=== PATIENT | female | born 1975 | race Caucasian/White ===

== ENCOUNTER 2020-04-09 02:57 | Outpatient (CLI) | payer OTHER, SELFPAY ==
[2020-04-09 19:47] LABS: SARS-CoV-2 RNA PCR Negative
== END 2020-04-09 02:58 | disposition home or self-care (01) ==
LOC: ANHCOVIDDT 02:57
PROVIDERS: PCP Family Medicine; Visit Provider Internal Medicine Gastroenterology
DX: Z01.812 Encounter for preprocedural laboratory examination (principal); Z20.828 Contact with and (suspected) exposure to other viral communicable diseases
CPT/HCPCS: 87635; C9803; U0003

== ENCOUNTER 2020-04-12 00:59 | Day surgery (SDC) | payer OTHER, SELFPAY ==
[2020-04-08 13:59] VITALS: BMI 36.3
[2020-04-12 12:50] VITALS: BP 131/83; PULSE 77; RESP 16; TEMP 36.3; O2SAT 99
[2020-04-12] MEDS: LACTATED RINGERS 1,000 ML 150 ML IV CONT (12:54)
--- NOTE | 2020-04-12 13:02 | WPDANESEPPF ---
Anes - Initial Pre Proc Eval Procedure: Operation Date: 04/12/20 14:30 Proposed Procedures p Esophagogastroduodenoscopy - Burt Mclean MD Date/Time: 04/12/20 13:02 Surgeon: Burt Mclean MD Pre Op Diagnosis: N & V/ Gastritis Patient Data Age: 44 Gender: F Height: 1.68 m Weight: 102.8 kg Last Vital Signs Temp 36.3 C L 04/12/20 12:50 Pulse 77 04/12/20 12:50 Resp 16 04/12/20 12:50 BP 131/83 04/12/20 12:50 Pulse Ox 99 04/12/20 12:50 Allergies Allergy/AdvReac Type Severity Reaction Status Date / Time Iodinated Contrast Media Allergy Severe hives Verified 04/12/20 12:50 iodine Allergy Severe Hives Verified 04/12/20 12:50 iodixanol Allergy Severe Hives Verified 04/12/20 12:50 Contrast Media Allergy Severe Hives Uncoded 04/08/20 13:57 Home Medications Medication Instructions Recorded Confirmed Type amitriptyline 25 mg tablet 25 mg PO HS 04/03/19 04/08/20 History topiramate 50 mg tablet 50 mg PO BID 04/03/19 04/08/20 History pantoprazole 40 mg tablet,delayed 40 mg PO QAM #30 tablet 02/08/20 04/08/20 Rx release Patient hx anesthesia problems: none Family hx anesthesia problems: none PMFSH Past Medical History Medical History (System 03/20/20 @ 08:38 by Namrata Olea) Adenomatous colon polyp Bloating Chronic left-sided low back pain without sciatica Depression with anxiety Diarrhea Erosive gastritis Family history of colon cancer LUQ pain Migraine Nausea Family History Family History (System 03/20/20 @ 08:38 by Namrata Olea) Father Cerebrovascular accident Hypertension Mother Diabetes mellitus Family history of osteoarthritis Carcinoma of colon Other Family history of arthritis Family history of malignant neoplasm Family history of malignant neoplasm of ovary Social History Social History (System 03/20/20 @ 08:38 by Namrata Olea) Smoking packs per day: 1 Smoking cigarettes per day: 20.0 Years smoked: 25 Smoking pack-years: 25.00 Smoking status: Former smoker Tobacco type: cigarettes Second hand tobacco smoke exposure: No Smoking end date: 12/20/18 Alcohol intake: never Substance use: never Substance use type: does not use Living arrangements: with family Spiritual care concerns: No Anes - Eval Final PreProcedure Day of Procedure 04/12/20 13:02 Patient weight: obese Heart: regular rate and rhythm Lungs: clear to auscultation and normal air movement Airway: Mallampati scale class II Neurological: alert and oriented Last oral intake: >/= 8 hours ASA classification: II Emergent: no Anesthetic plan: proceed Anesthesia type and monitoring: general GIVS Informed Consent: The patient's anesthetic plan and its attendant risks and benefits were discussed with the patient/family/POA. Questions were solicited and answers provided to the satisfaction of the patient/family/POA.
--- NOTE | 2020-04-12 13:55 | PM.HPGS ---
History of Present Illness History of Present Illness Consent: Risks, benefits, and alternatives have been discussed and questions answered. Patient agrees to proceed with procedure. Chief complaint: N & V/ Gastritis Narrative: Savanah Jordan is a 44 year old female here because 04/2019 egd showed moderate-severe erosive gastritis with ulcers, now on protonix better. Review of Systems Constitutional: Constitutional: Denies headache(s) and Denies weakness Eyes: Eyes: Denies blurry vision ENT: Reports Normal hearing present, Denies headache(s) and Denies neck pain Cardiovascular: Cardiovascular: Denies chest pain and Denies dyspnea Respiratory: Respiratory: Denies dyspnea Gastrointestinal: Gastrointestinal: Reports no additional gastrointestinal complaints Genitourinary: Genitourinary: Denies dysuria Musculoskeletal: Musculoskeletal: Denies neck pain Integumentary/Breasts: Skin/Breast: Denies dry skin Neurologic: Reports Normal hearing present, Denies headache(s) and Denies weakness Psychiatric: Psychiatric: Denies anxiety Endocrine: Endocrine: Denies change in body appearance Hematologic/Lymphatic: Hematologic/Lymphatic: Denies easy bleeding Allergic/Immunologic: Allergic/Immunologic: Denies urticaria PMFSH Past Medical History Medical History (System 03/20/20 @ 08:38 by Namrata Olea) Adenomatous colon polyp Bloating Chronic left-sided low back pain without sciatica Depression with anxiety Diarrhea Erosive gastritis Family history of colon cancer LUQ pain Migraine Nausea Family History Family History (System 03/20/20 @ 08:38 by Namrata Olea) Father Cerebrovascular accident Hypertension Mother Diabetes mellitus Family history of osteoarthritis Carcinoma of colon Other Family history of arthritis Family history of malignant neoplasm Family history of malignant neoplasm of ovary Social History Social History (System 03/20/20 @ 08:38 by Namrata Olea) Smoking packs per day: 1 Smoking cigarettes per day: 20.0 Years smoked: 25 Smoking pack-years: 25.00 Smoking status: Former smoker Tobacco type: cigarettes Second hand tobacco smoke exposure: No Smoking end date: 12/20/18 Alcohol intake: never Substance use: never Substance use type: does not use Living arrangements: with family Spiritual care concerns: No Meds Home Medications and Allergies Home Medications Medication Instructions Recorded Confirmed Type amitriptyline 25 mg tablet 25 mg PO HS 04/03/19 04/08/20 History topiramate 50 mg tablet 50 mg PO BID 04/03/19 04/08/20 History pantoprazole 40 mg tablet,delayed 40 mg PO QAM #30 tablet 02/08/20 04/08/20 Rx release Allergies Allergy/AdvReac Type Severity Reaction Status Date / Time Iodinated Contrast Media Allergy Severe hives Verified 04/12/20 12:50 iodine Allergy Severe Hives Verified 04/12/20 12:50 iodixanol Allergy Severe Hives Verified 04/12/20 12:50 Contrast Media Allergy Severe Hives Uncoded 04/08/20 13:57 Vital Signs Vital Signs - 24 hr 04/12/20 12:50 Temperature 97.4 F L Pulse Rate 77 Respiratory Rate 16 Blood Pressure 131/83 Pulse Oximetry 99 Exam Const: General: comfortable and no acute distress HENMT: General nose exam: Normal nares present Eyes: General: appearance normal, both eyes and all related structures Neck: Neck: no JVD Resp: Auscultation: clear to auscultation bilaterally Cardio: Rate: regular rate Rhythm: regular rhythm GI: Inspection: non-distended GI Palp: Yes Soft to palpation Skin: General skin exam: normal color Neuro: General: gait normal Speech: normal speech Extrem: General: normal to inspection Psych: Mental Status: mental status grossly normal Assessment and Plan Assessment and plan (1) Erosive gastritis: Code(s): K29.60 - Other gastritis without bleeding Status: Acute Assessment and Plan: egd to reassess (2) Naus
[2020-04-12] MEDS: BENZOCAINE (*SP) 60 ML SPRAY CAN (HURRICAINE) 1 SPRAY MUCOUS MEM (14:02)
[2020-04-12 14:13] VITALS: BP 111/72; PULSE 74; RESP 19; O2SAT 100
[2020-04-12 14:23] VITALS: BP 112/76; PULSE 68; RESP 15; O2SAT 100
[2020-04-12 14:33] VITALS: BP 112/69; PULSE 68; RESP 21; O2SAT 100
== END 2020-04-12 14:39 | disposition home or self-care (01) ==
PROVIDERS: PCP Family Medicine; Visit Provider Internal Medicine Gastroenterology
PROC: 0DJ08ZZ Inspection of Upper Intestinal Tract, Via Natural or Artificial Opening Endoscopic (ICD-10-PCS; CPT 43235; principal; 2020-04-12 14:30)
DX: K29.50 Unspecified chronic gastritis without bleeding (principal); K21.9 Gastro-esophageal reflux disease without esophagitis; Z87.11 Personal history of peptic ulcer disease; F41.8 Other specified anxiety disorders; Z80.0 Family history of malignant neoplasm of digestive organs; Z87.891 Personal history of nicotine dependence; E66.9 Obesity, unspecified; Z68.36 Body mass index [BMI] 36.0-36.9, adult
CPT/HCPCS: 43239; 88305; J2704; J7120

== ENCOUNTER 2020-05-05 10:27 | Emergency (ER) | payer OTHER, SELFPAY ==
[2020-05-05 10:35] VITALS: BP 124/80; PULSE 79; RESP 16; TEMP 36.8; O2SAT 100
[2020-05-05 10:49] VITALS: BP 124/80; PULSE 79; RESP 16; TEMP 36.8; O2SAT 100
--- NOTE | 2020-05-05 10:52 | ED.FEMALEGU ---
HPI - Female Genitourinary General Chief complaint: Urogenital-Female Stated complaint: UTI Time Seen by Provider: 05/05/20 10:43 Source: patient and RN notes reviewed Mode of arrival: ambulatory Limitations: no limitations History of Present Illness HPI Narrative: Patient presents today with a 4 to 5-day history of dysuria, urgency, low back pain. Symptoms have significantly worsened over the past 2 days. Denies abdominal pain, hematuria, fever, nausea, vomiting. She has tried no [id number] interventions prior to arrival. MD elicited complaint: UTI Related Data Home Medications Medication Instructions Recorded Confirmed amitriptyline 25 mg tablet 25 mg PO HS 04/03/19 05/05/20 topiramate 50 mg tablet 50 mg PO BID 04/03/19 05/05/20 Allergies Allergy/AdvReac Type Severity Reaction Status Date / Time Iodinated Contrast Media Allergy Severe hives Verified 05/05/20 10:33 iodine Allergy Severe Hives Verified 05/05/20 10:33 iodixanol Allergy Severe Hives Verified 05/05/20 10:33 Contrast Media Allergy Severe Hives Uncoded 05/05/20 10:33 Review of Systems Review of Systems: Narrative: CONSTITUTIONAL: Denies body aches, fever, chills, or sweats. EYES: Denies visual changes, redness, or discharge. ENT: Denies rhinorrhea, congestion, sore throat, or otalgia. CARDIOVASCULAR: Denies chest pain, palpitations, or edema. RESPIRATORY: Denies cough or dyspnea. GASTROINTESTINAL: Denies abdominal pain, nausea, vomiting, or diarrhea. GENITOURINARY: Denies hematuria. + Dysuria, urgency SKIN: Denies rash, itching, or wounds. MUSCULOSKELETAL: Denies joint pain, or myalgia. + Low back pain NEUROLOGIC: Denies headache, numbness, tingling, or weakness. PSYCH: Denies depression or anxiety. [facility] Past Medical History Medical History Adenomatous colon polyp Bloating Chronic left-sided low back pain without sciatica Depression with anxiety Diarrhea Erosive gastritis Family history of colon cancer LUQ pain Migraine Nausea Family History Family History Father Cerebrovascular accident Hypertension Mother Diabetes mellitus Family history of osteoarthritis Carcinoma of colon Other Family history of arthritis Family history of malignant neoplasm Family history of malignant neoplasm of ovary Social History Social History Smoking packs per day: 1 Smoking cigarettes per day: 20.0 Years smoked: 25 Smoking pack-years: 25.00 Smoking status: Former smoker Tobacco type: cigarettes Second hand tobacco smoke exposure: No Smoking end date: 12/20/18 Alcohol intake: never Substance use: never Substance use type: does not use Spiritual care concerns: No Comments At time of signature, I have reviewed and agree with nursing past medical, surgical, social and family history unless otherwise noted. Please see nursing chart for further information. There is no relevant family history pertinent to the presenting complaint Exam Narrative: Exam Narrative: GENERAL: Well-appearing, well-nourished, and in no acute distress. HEAD: Normocephalic, atraumatic. EYES: EOMI. No redness or drainage. Conjunctivae normal. ENT: Mucous membranes pink and moist. NECK: Normal AROM. CHEST: No respiratory distress. Clear to auscultation. HEART: Regular rate and rhythm. No murmur appreciated. Normal peripheral pulses. ABDOMEN: Soft, nontender, nondistended, normal active bowel sounds. -CVAT MUSCULOSKELETAL: No bony tenderness. EXTREMITIES: Normal range of motion. No edema. SKIN: Warm, dry, no rash. Capillary refill normal. Normal skin turgor. NEURO: No focal deficits. Alert and oriented x3. Gait steady. PSYCH: Normal affect. No signs of depression or anxiety. Course Vital Signs Vital signs: Vital Signs Temperature 98.2 F 05/05
== END 2020-05-05 11:00 | disposition home or self-care (01) ==
PROVIDERS: Emergency Provider Nurse Practitioner; PCP Family Medicine
DX: N30.01 Acute cystitis with hematuria (principal); Z87.891 Personal history of nicotine dependence; F32.9 Major depressive disorder, single episode, unspecified
CPT/HCPCS: 81003; 87077; 87086; 87088; 87186; 99213; G0463

== ENCOUNTER 2020-12-06 09:35 | Outpatient (CLI) | payer BC, MEDICAID, SELFPAY ==
--- NOTE | 2020-12-06 09:41 | EST_ITS ---
Patient Info Name: Savanah Jordan Age: 45 years : 1975 Gender: Female Ht: 66 in Wt: 225 lbs BSA: 2.22 m2 Exam Date: 12/06/2020 9:56 AM Exam Location: [facility] Stress Patient Status: Outpatient Admit Date: 12/06/2020 Staff Ordering Physician: Isatu Galindo NP Attending Provider: Isatu Galindo NP Exercise Technologist: Yolie Nichole RDCS Exercise Physician: Albert Baez DO Exam Type: CA stress test treadmill Study Info A treadmill exercise stress test was performed. Summary 1. 1. Negative Bright exercise stress test for ischemic ST changes by ECG criteria. 2. 2. Good functional capacity, achieving 10 METs of workload. 3. 3. Appropriate HR response to exercise. 4. 4. Appropriate HR recovery at 1 minute post exercise. 5. 5. No imaging with stress testing. 6. 6. Patient informed of the above results. Protocol: Bright Stress ECG Details Stage: REST Duration (min): 0 min : 49 sec Speed (mph): 0.0 Grade (%): 0 HR (bpm): 71 SBP (mmHg): 127 DBP (mmHg): 79 METS: --- Stage: REST Duration (min): 6 min : 35 sec Speed (mph): 0.0 Grade (%): 0 HR (bpm): 75 SBP (mmHg): 127 DBP (mmHg): 79 METS: --- Stage: STAGE 1 Duration (min): 1 min : 0 sec Speed (mph): 1.7 Grade (%): 10 HR (bpm): 108 SBP (mmHg): 127 DBP (mmHg): 79 METS: --- Stage: STAGE 1 Duration (min): 2 min : 0 sec Speed (mph): 1.7 Grade (%): 10 HR (bpm): 119 SBP (mmHg): 127 DBP (mmHg): 79 METS: --- Stage: STAGE 1 Duration (min): 3 min : 0 sec Speed (mph): 1.7 Grade (%): 10 HR (bpm): 124 SBP (mmHg): 127 DBP (mmHg): 79 METS: --- Stage: STAGE 2 Duration (min): 1 min : 0 sec Speed (mph): 2.5 Grade (%): 12 HR (bpm): 132 SBP (mmHg): 125 DBP (mmHg): 66 METS: --- Stage: STAGE 2 Duration (min): 2 min : 0 sec Speed (mph): 2.5 Grade (%): 12 HR (bpm): 134 SBP (mmHg): 125 DBP (mmHg): 66 METS: --- Stage: STAGE 2 Duration (min): 3 min : 0 sec Speed (mph): 2.5 Grade (%): 12 HR (bpm): 138 SBP (mmHg): 125 DBP (mmHg): 66 METS: --- Stage: STAGE 3 Duration (min): 1 min : 0 sec Speed (mph): 3.4 Grade (%): 14 HR (bpm): 153 SBP (mmHg): 125 DBP (mmHg): 66 METS: --- Stage: STAGE 3 Duration (min): 2 min : 0 sec Speed (mph): 3.4 Grade (%): 14 HR (bpm): 163 SBP (mmHg): 125 DBP (mmHg): 66 METS: --- Stage: STAGE 3 Duration (min): 2 min : 30 sec Speed (mph): 3.4 Grade (%): 14 HR (bpm): 166 SBP (mmHg): 125 DBP (mmHg): 66 METS: --- Stage: RECOVERY Duration (min): 0 min : 29 sec Speed (mph): 0.0 Grade (%): 0 HR (bpm): 157 SBP (mmHg): 181 DBP (mmHg): 76 METS: --- Stage: RECOVERY Duration (min): 1 min : 29 sec Speed (mph): 0.0 Grade (%): 0 HR (bpm): 122 SB
== END 2020-12-06 09:36 | disposition home or self-care (01) ==
PROVIDERS: PCP Family Medicine; Visit Provider Nurse Practitioner Family
DX: R06.00 Dyspnea, unspecified (principal)
CPT/HCPCS: 93017

== ENCOUNTER 2021-03-25 16:56 | Outpatient (CLI) | payer BC, MEDICAID, SELFPAY ==
--- NOTE | ~2021-03-25 | US_ITS ---
EXAMINATION: US soft tissue head and neck EXAM DATE: 03/25/2021 17:30 INDICATION: R59.9 - Enlarged lymph nodes, unspecified. TECHNIQUE: Multiple grayscale and Doppler images of the symptomatic right neck palpable region were o btained (by a technologist who performed the scan) and subsequently reviewed. There is no prior stud y for comparison. FINDINGS: Scanning in the right neck area of clinical concern demonstrates an oval-shaped structure with small echogenic fatty hilum, a lymph node. This measures 12 x 5 x 11 mm in size, mildly enlarged. Could be reactive but granulomatous process, lymphoma or other malignancy can also cause lymphadenopathy. IMPRESSION: Mildly enlarged right neck lymph node, could be reactive but recommend clinical follow-up and if this enlarges or does not resolve, recommend CT neck. Reviewed, dictated and finalized at location A. IMPRESSION: Mildly enlarged right neck lymph node, could be reactive but recomm end clinical follow-up and if this enlarges or does not resolve, recommend CT n tan.
== END 2021-03-25 16:57 | disposition home or self-care (01) ==
LOC: ANHIMG 17:02
PROVIDERS: PCP Family Medicine; Visit Provider Nurse Practitioner
DX: R59.9 Enlarged lymph nodes, unspecified (principal)
CPT/HCPCS: 76536

== ENCOUNTER 2021-04-03 13:57 | Outpatient (CLI) | payer BC, MEDICAID, SELFPAY ==
--- NOTE | ~2021-04-03 | CT_ITS ---
EXAMINATION: CT soft tissue neck wo con DATE: 04/03/2021 14:34 INDICATION: Right-sided cervical lymphadenopathy. TECHNIQUE: Computed tomography (CT) of the neck was performed intravenous contrast. Automated exposur e control and iterative reconstruction technique were employed. The dose-length product was 491.89 mG y-cm. COMPARISON: Ultrasound 03/25/2021 FINDINGS: There is minimal mucosal thickening in left maxillary sinus. The mastoid air cells are norm al. A skin marker overlies the high right internal jugular lymph node chain. There are no pathologica lly enlarged lymph nodes. There is mild cervical spondylosis. IMPRESSION: 1. No lymphadenopathy. Reviewed, dictated and finalized at location A. MASTER IMPRESSION: 1. No lymphadenopathy.
== END 2021-04-03 13:58 | disposition home or self-care (01) ==
LOC: ANHIMG 14:01
PROVIDERS: PCP Family Medicine; Visit Provider Nurse Practitioner
DX: R59.9 Enlarged lymph nodes, unspecified (principal)
CPT/HCPCS: 70490

== ENCOUNTER 2021-04-23 17:29 | Emergency (ER) | payer BC, MEDICAID, SELFPAY ==
--- NOTE | ~2021-04-23 | XR_ITS ---
EXAMINATION: XR foot LT min 3V DATE: 04/23/2021 17:49 INDICATION: Left foot injury and pain. TECHNIQUE: 4 views of left foot were obtained. COMPARISON: None. FINDINGS: There is moderate hallux valgus. There is a bunionette deformity of the fifth digit. No fra cture. Joint spaces are normal. There is an enthesophyte at plantar aspect of calcaneal tuberosity. IMPRESSION: 1. Moderate hallux valgus. 2. Bunionette. Reviewed, dictated and finalized at location A. ATHERAPIST
[2021-04-23 17:39] VITALS: BP 138/105; PULSE 73; RESP 16; TEMP 36.8; O2SAT 100
--- NOTE | 2021-04-23 17:41 | ED.LOWEXIN ---
HPI - Extremity Injury (Lower) General Chief Complaint: Extremity Injury, Lower Stated Complaint: INJURED L FOOT Time Seen by Provider: 04/23/21 17:56 Source: patient and RN notes reviewed Mode of arrival: ambulatory Limitations: no limitations History of Present Illness HPI Narrative: 45-year-old female presents concern for left foot pain. Reports on Wednesday a heavy dog jumped on her foot causing pain. She reports pain worsened slightly today. She denies any decrease strength, sensation, range of motion. She denies any intervention, she has been walking on the foot as usual. She denies any lacerations, abrasions, redness, bruising, swelling MD complaint: foot injury Related Data Home Medications Medication Instructions Recorded Confirmed amitriptyline 25 mg tablet 25 mg PO HS 04/03/19 04/23/21 topiramate 50 mg tablet 50 mg PO QHS tablet 12/13/20 04/23/21 Allergies Allergy/AdvReac Type Severity Reaction Status Date / Time Iodinated Contrast Media Allergy Severe hives Verified 04/23/21 17:38 iodine Allergy Severe Hives Verified 04/23/21 17:38 iodixanol Allergy Severe Hives Verified 04/23/21 17:38 Contrast Media Allergy Severe Hives Uncoded 04/23/21 17:38 Review of Systems Review of Systems: CONSTITUTIONAL: Denies malaise, chills, sweats, or fever. EYES: Denies visual changes, redness, or discharge. ENT: Denies rhinorrhea, congestion, sinus pain, otalgia or sore throat. CARDIOVASCULAR: Denies chest pain, palpitations, or edema. RESPIRATORY: Denies cough or dyspnea. GASTROINTESTINAL: Denies abdominal pain, nausea, vomiting, diarrhea, bloody, or mucous stools. GENITOURINARY: Denies dysuria or hematuria. SKIN: Denies rash or itching. MUSCULOSKELETAL: Denies back pain, joint pain, or myalgia. NEUROLOGIC: Denies numbness, weakness, or headache. PSYCHIATRIC: Denies anxiety or depression. All systems reviewed & are unremarkable except as noted in HPI and below PMFSH Past Medical History Medical History (Updated 04/23/21 @ 18:10 by Cece Hernandez NP) Adenomatous colon polyp (~04/2019) Chronic left-sided low back pain without sciatica Depression with anxiety Dyspepsia Erosive gastritis Family history of colon cancer LUQ pain Migraine Surgical History Surgical History Hx of arthroscopic knee surgery (~05/2016) Family History Family History Father Cerebrovascular accident Hypertension Mother Diabetes mellitus Family history of osteoarthritis Carcinoma of colon Other Family history of arthritis Family history of malignant neoplasm Family history of malignant neoplasm of ovary Social History Social History Smoking packs per day: 1 Smoking cigarettes per day: 20.0 Years smoked: 25 Smoking pack-years: 25.00 Tobacco type: cigarettes Second hand tobacco smoke exposure: No Smoking end date: 10/24/18 Alcohol intake: never Substance use: never Substance use type: does not use Spiritual care concerns: No Comments At time of signature, agree with nursing past medical, surgical, social and family history. There is no relevant family history pertinent to the presenting complaint Exam Narrative: GENERAL: Well-appearing, well-nourished, and in no acute distress. HEAD: Normocephalic, atraumatic. EYES: PERRLA, conjunctivae clear NECK: Supple. CHEST: Speaks in full sentences. No respiratory distress. HEART: Regular rate and rhythm. Normal and equal peripheral pulses. EXTREMITIES: Left foot, digits of left foot have has normal strength and sensation, normal range of motion. No edema or ecchymosis. 5/5 strength with ankle and digit flexion and extension. Normal sensation with sensitivity to light touch and pain. Mid medial tenderness. No open wounds, no skin tenting, no devitalized tissue or atrophy, no trophic changes,
== END 2021-04-23 18:25 | disposition home or self-care (01) ==
PROVIDERS: Emergency Provider Nurse Practitioner; PCP Family Medicine
DX: S99.922A Unspecified injury of left foot, initial encounter (principal); F17.210 Nicotine dependence, cigarettes, uncomplicated; W54.8XXA Other contact with dog, initial encounter
CPT/HCPCS: 73630; 99213; G0463

== ENCOUNTER 2022-03-02 02:05 | Day surgery (SDC) | payer BC, MEDICAID, SELFPAY ==
[2022-02-13 13:56] VITALS: BMI 36.6
[2022-03-02 10:30] VITALS: BP 120/81; PULSE 66; RESP 18; TEMP 36.4; O2SAT 100; BMI 37.1
[2022-03-02] MEDS: LACTATED RINGERS 1,000 ML 150 ML IV CONT (10:39)
--- NOTE | 2022-03-02 11:06 | WPDANESEPPF ---
Anes - Initial Pre Proc Eval Procedure: Operation Date: 03/02/22 13:45 Proposed Procedures p Esophagogastroduodenoscopy - Burt Mclean MD Date/Time: 03/02/22 11:06 Surgeon: Burt Mclean MD Pre Op Diagnosis: GERD, Dyspepsia Patient Data Age: 46 Gender: F Height: 1.68 m Weight: 104.4 kg Last Vital Signs Temp 97.6 F 03/02/22 10:30 Pulse 66 03/02/22 10:30 Resp 18 03/02/22 10:30 BP 120/81 03/02/22 10:30 Pulse Ox 100 03/02/22 10:30 O2 Del Method Room Air 03/02/22 10:30 Allergies Allergy/AdvReac Type Severity Reaction Status Date / Time Iodinated Contrast Media Allergy Severe hives Verified 03/02/22 10:28 Home Medications Medication Instructions Recorded Confirmed Type amitriptyline 25 mg tablet 25 mg PO HS 04/03/19 03/02/22 History topiramate 50 mg tablet (Topamax) 50 mg PO BID 12/13/20 03/02/22 History pantoprazole 40 mg tablet,delayed 40 mg PO BID 1 month #60 tabs 02/12/22 03/02/22 Rx release Patient hx anesthesia problems: none Family hx anesthesia problems: none Results Review: All pre-operative results and documents have been reviewed as part of the pre-operative evaluation. [facility] Past Medical History Medical History (Updated 02/12/22 @ 15:55 by Burt Mclean MD) Adenomatous colon polyp (~04/2019) Chronic left-sided low back pain without sciatica Depression with anxiety Dyspepsia Erosive gastritis Family history of colon cancer GERD (gastroesophageal reflux disease) LUQ pain Migraine Surgical History Surgical History Hx of arthroscopic knee surgery (~05/2016) Family History Family History Father Cerebrovascular accident Hypertension Mother Diabetes mellitus Family history of osteoarthritis Carcinoma of colon Other Family history of arthritis Family history of malignant neoplasm Family history of malignant neoplasm of ovary Social History Social History (Reviewed 02/12/22 @ 15:26 by CESAR Moore Smoking packs per day: 1 Smoking cigarettes per day: 20.0 Years smoked: 20 Smoking pack-years: 20.00 Smoking status: Former smoker Tobacco type: cigarettes Second hand tobacco smoke exposure: No Smoking end date: 10/24/18 Alcohol intake: never Substance use: never Substance use type: does not use Living arrangements: with family Spiritual care concerns: No Anes - Eval Final PreProcedure Day of Procedure 03/02/22 11:06 Patient weight: obese Heart: regular rate and rhythm Lungs: clear to auscultation Airway: Mallampati scale class II Neurological: alert and oriented Last oral intake: >/= 8 hours ASA classification: II Emergent: no Anesthetic plan: proceed Anesthesia type and monitoring: general GIVS and standard monitoring Results Review: All pre-operative results and documents have been reviewed as part of the pre-operative evaluation. Informed Consent: The patient's anesthetic plan and its attendant risks and benefits were discussed with the patient/family/POA. Questions were solicited and answers provided to the satisfaction of the patient/family/POA.
--- NOTE | 2022-03-02 11:49 | WPDHPUPDATE1 ---
History and Physical Update Update Date/Time: 03/02/22 11:49 History and Physical has been reviewed, including an updated exam of the patient. There are NO changes in the patient's condition. Risks, benefits, and alternatives have been discussed and questions answered. Patient agrees to proceed with procedure.
[2022-03-02 12:05] VITALS: BP 108/70; PULSE 71; RESP 14; O2SAT 100
[2022-03-02 12:15] VITALS: BP 115/79; PULSE 67; RESP 14; O2SAT 100
[2022-03-02 12:25] VITALS: BP 122/81; PULSE 62; RESP 11; O2SAT 100
== END 2022-03-02 12:32 | disposition home or self-care (01) ==
PROVIDERS: PCP Family Medicine; Visit Provider Internal Medicine Gastroenterology
PROC: 0DJ08ZZ Inspection of Upper Intestinal Tract, Via Natural or Artificial Opening Endoscopic (ICD-10-PCS; CPT 43235; principal; 2022-03-02 13:45)
DX: K30 Functional dyspepsia (principal); K29.50 Unspecified chronic gastritis without bleeding; K21.9 Gastro-esophageal reflux disease without esophagitis; F32.A Depression, unspecified; F41.9 Anxiety disorder, unspecified; Z80.0 Family history of malignant neoplasm of digestive organs; Z87.891 Personal history of nicotine dependence; E66.9 Obesity, unspecified; Z68.37 Body mass index [BMI] 37.0-37.9, adult
CPT/HCPCS: 43239; 88305; J2704; J3010; J7120

== ENCOUNTER 2022-09-08 23:11 | Outpatient (NON) | payer BC, MEDICAID, SELFPAY | END 2022-09-08 23:12 | disposition home or self-care (01) | LOC: ANHLAB 23:12 | PROVIDERS: PCP Family Medicine; Visit Provider Nurse Practitioner | DX: R39.9 Unspecified symptoms and signs involving the genitourinary system (principal) | CPT/HCPCS: 87086 ==

== ENCOUNTER 2022-09-10 12:37 | Outpatient (CLI) | payer BC, MEDICAID, SELFPAY ==
[2022-09-10 19:37] LABS: Basophils Percent Auto 0.7 % (0.2-1.2); Eosinophils Absolute Auto 0.3 K/mm3 (0-0.3); Eosinophils Percent Auto 4.8 % (0-4.4); Hematocrit 46.2 % (37.0-47.0); Hemoglobin 14.8 g/dL (12.0-15.0); Immature Granulocyte Absolute 0.01 K/mm3 (0.00-0.031); Immature Granulocyte Percent A 0.2 % (0-0.5); Lymphocytes Absolute Auto 1.88 K/mm3 (0.9-3.2); Lymphocytes Percent Auto 33.1 % (18.3-44.2); Mean Corpuscular Hemoglobin 30.7 pg (26-34); Mean Corpuscular Volume 95.9 fl (80-100); Mean Platelet Volume 9.9 fl (7.4-10.4); Monocytes Absolute Auto 0.3 K/mm3 (0.1-0.6); Monocytes Percent Auto 5.1 % (2.6-8.5); Neutrophils Absolute Auto 3.2 K/mm3 (1.3-6.7); Neutrophils Percent Auto 56.1 % (45.5-73.1); Platelet Count Result 304 k/mm3 (150-375); Red Blood Count 4.82 M/mm3 (4.2-5.4); Red Cell Distribution Width 12.8 % (11.5-14.5); White Blood Count 5.7 K/mm3 (4.5-10.0)
[2022-09-10 19:46] LABS: Alanine Aminotransferase 34 U/L (6-35); Albumin Level 4.4 g/dL (3.5-5.1); Alkaline Phosphatase 64 U/L (38-126); Anion Gap 6 mmol/L (8-16); Aspartate Amino Transferase 29 U/L (14-36); Bilirubin,Total 0.6 mg/dL (0.2-1.3); Blood Urea Nitrogen 12 mg/dL (7-17); Carbon Dioxide 26 mmol/L (22-30); Chloride 105 mmol/L (98-107); Cholesterol 248 mg/dL (0-200); Estimated Glomerular Filt Rate 54; Glucose 86 mg/dL (65-110); HDL Direct 52 mg/dL; Potassium 4.1 mmol/L (3.4-5.0); Sodium 137 mmol/L (137-145); Triglycerides 123 mg/dL (<150)
[2022-09-10 20:00] LABS: LDL Cholesterol Direct 154 mg/dL
[2022-09-10 20:23] LABS: Hemoglobin A1C 5.5 % (<5.7)
[2022-09-10 20:28] LABS: Thyroid Stimulating Hormone Reflex 0.753 uIU/mL (0.465-4.68)
== END 2022-09-10 12:38 | disposition home or self-care (01) ==
LOC: ANHGOSHLAB 12:38
PROVIDERS: PCP Family Medicine; Visit Provider Nurse Practitioner
DX: Z13.6 Encounter for screening for cardiovascular disorders (principal); R73.9 Hyperglycemia, unspecified; R63.5 Abnormal weight gain; Z13.220 Encounter for screening for lipoid disorders
CPT/HCPCS: 36415; 80053; 80061; 83036; 84443; 85025

== ENCOUNTER 2022-10-15 09:42 | Outpatient (CLI) | payer BC, MEDICAID, SELFPAY | END 2022-10-15 09:43 | disposition home or self-care (01) | LOC: ANHGOSHLAB 09:43 | PROVIDERS: PCP Family Medicine; Visit Provider Nurse Practitioner Family | DX: E53.8 Deficiency of other specified B group vitamins (principal); Z13.29 Encounter for screening for other suspected endocrine disorder; Z13.21 Encounter for screening for nutritional disorder | CPT/HCPCS: 36415; 82306; 82607; 84443 ==

== ENCOUNTER 2023-09-03 15:04 | Outpatient (CLI) | payer BC, MEDICAID, SELFPAY ==
--- NOTE | ~2023-09-03 | MM_ITS ---
EXAMINATION: MM screening codie BI w merline HISTORY: Screening TECHNIQUE: Craniocaudal and mediolateral oblique 3-D tomosynthesis images were obtained and synthetic 2-D images were generated. CAD analysis was submitted and interpreted. COMPARISON: 03/19/2018 BREAST PARENCHYMAL COMPOSITION: Not dense: There are scattered areas of fibroglandular density. FINDINGS: There is no evidence of suspicious mass, calcification, or architectural distortion to sugg est malignancy in either breast. There has been no suspicious interval change. IMPRESSION: 1. No mammographic evidence of malignancy. 2. Recommend routine screening mammography in one year. BI-RADS Category 1: Negative Reviewed, dictated and finalized at location A.
== END 2023-09-03 15:05 ==
LOC: MICIMG 15:05
PROVIDERS: PCP Nurse Practitioner Family; Visit Provider Nurse Practitioner Family
DX: Z12.31 Encounter for screening mammogram for malignant neoplasm of breast (principal)
CPT/HCPCS: 77063; 77067

== ENCOUNTER 2024-01-07 15:42 | Outpatient (CLI) | payer BC, MEDICAID, SELFPAY ==
[2024-01-07 18:40] LABS: Alanine Aminotransferase 43 U/L (6-35); Albumin Level 4.1 g/dL (3.5-5.1); Alkaline Phosphatase 56 U/L (38-126); Anion Gap 7 mmol/L (4-12); Aspartate Amino Transferase 79 U/L (14-36); Bilirubin,Total 0.6 mg/dL (0.2-1.3); Blood Urea Nitrogen 13 mg/dL (7-17); Calcium 9.4 mg/dL (8.4-10.2); Carbon Dioxide 31 mmol/L (22-30); Chloride 102 mmol/L (98-107); Estimated Glomerular Filt Rate > 60; Glucose 110 mg/dL (65-110); Potassium 4.2 mmol/L (3.4-5.0); Sodium 140 mmol/L (137-145); Uric Acid 6.5 mg/dL (2.5-7.5)
== END 2024-01-07 15:43 | disposition home or self-care (01) ==
LOC: ANHGOSHLAB 15:43
PROVIDERS: PCP Family Medicine; Visit Provider Nurse Practitioner Family
DX: R53.83 Other fatigue (principal); M79.674 Pain in right toe(s); M79.675 Pain in left toe(s)
CPT/HCPCS: 36415; 80053; 84550

== ENCOUNTER 2024-06-06 10:20 | Outpatient (CLI) | payer BC, SELFPAY ==
[2024-06-06 13:31] LABS: Basophils Percent Auto 0.6 % (0.2-1.2); Eosinophils Absolute Auto 0.2 K/mm3 (0-0.3); Eosinophils Percent Auto 3.1 % (0-4.4); Hematocrit 45.3 % (37.0-47.0); Hemoglobin 14.5 g/dL (12.0-15.0); Immature Granulocyte Absolute 0.03 K/mm3 (0.00-0.031); Immature Granulocyte Percent A 0.4 % (0-0.5); Lymphocytes Absolute Auto 1.63 K/mm3 (0.9-3.2); Lymphocytes Percent Auto 24.1 % (18.3-44.2); Mean Corpuscular Hemoglobin 31.6 pg (26-34); Mean Corpuscular Volume 98.7 fl (80-100); Mean Platelet Volume 10.5 fl (7.4-10.4); Monocytes Absolute Auto 0.5 K/mm3 (0.1-0.6); Monocytes Percent Auto 6.7 % (2.6-8.5); Neutrophils Absolute Auto 4.4 K/mm3 (1.3-6.7); Neutrophils Percent Auto 65.1 % (45.5-73.1); Platelet Count Result 252 k/mm3 (150-375); Red Blood Count 4.59 M/mm3 (4.2-5.4); Red Cell Distribution Width 12.5 % (11.5-14.5); White Blood Count 6.8 K/mm3 (4.5-10.0)
[2024-06-06 14:17] LABS: Thyroid Stimulating Hormone Reflex 0.998 uIU/mL (0.465-4.68)
[2024-06-06 15:09] LABS: Alanine Aminotransferase 15 U/L (6-35); Albumin Level 4.1 g/dL (3.5-5.1); Alkaline Phosphatase 59 U/L (38-126); Anion Gap 8 mmol/L (4-12); Aspartate Amino Transferase 31 U/L (14-36); Bilirubin,Total 0.9 mg/dL (0.2-1.3); Blood Urea Nitrogen 20 mg/dL (7-17); Calcium 9.1 mg/dL (8.4-10.2); Carbon Dioxide 24 mmol/L (22-30); Chloride 108 mmol/L (98-107); Cholesterol 181 mg/dL (0-200); Estimated Glomerular Filt Rate > 60; Glucose 83 mg/dL (65-110); HDL Direct 55 mg/dL; Magnesium 2.1 mg/dL (1.6-2.3); Sodium 140 mmol/L (137-145); Triglycerides 62 mg/dL (<150)
[2024-06-06 15:20] LABS: LDL Cholesterol Direct 105 mg/dL
== END 2024-06-06 10:21 | disposition home or self-care (01) ==
LOC: ANHGOSHLAB 10:21
PROVIDERS: PCP Family Medicine; Visit Provider Nurse Practitioner Family
DX: Z00.00 Encounter for general adult medical examination without abnormal findings (principal); E55.9 Vitamin D deficiency, unspecified; Z79.899 Other long term (current) drug therapy; E78.5 Hyperlipidemia, unspecified
CPT/HCPCS: 36415; 80053; 80061; 82306; 82607; 83735; 84443; 85025

== ENCOUNTER 2024-06-20 00:38 | Day surgery (SDC) | payer BC, SELFPAY ==
[2024-06-06 14:50] VITALS: BMI 29.7
--- OUTSIDE RECORDS SUMMARY | 2024-06-20 00:41 | XMS_ITS | Continuity of Care Document ---
Author Organization [facility] Address [address] [place] [address] Phone Care Team Providers Care Black Topper Name Role Phone Zach Garcia MD Unavailable Unavailable Allergies, Adverse Reactions, Alerts Substance Reaction Status Criticality No Known Allergies Active No Inform ation Medications Medication Instructions Dosage Effective Dates (start - stop) Status Comments amitriptyline 25 mg tablet take 1 tablet (25MG) by oral route every day at bedtime 25 MG - Active Procedures Procedure Date OFFICE/OUTPATIENT VISIT, EST OFFICE/OUTPATIENT VISIT, EST URINALYSIS NONAUTO W/O SCOPE OFFICE/OUTPATIENT VISIT, EST Advance Directives Directive Yes / No Effective Date File Name No Information Encounters Encounter Description Practice Location Reason(s) For Visit Diagnoses Date Provider Providers Copied on Encounter [facility], [address] [place], [id number], [place] tel:[phone] [facility] No Information 3 Jose Serrano. [address], [id number] , [place]. tel:[phone] Referring Provider: Zach Garcia, [address], [place], [place], [id number]. tel:[phone] OFFICE/OUTPA TIENT VISIT, EST [facility], [address], [place], [place], [id number], [place] tel:[phone] [facility] abdominal pain (chief complaint) Dietary surveillance and counselingAbdominal Pain 3 Jose Serrano. [address], [place], [place], [address] , [place]. tel:[phone] Referring Provider: Robert Kennedy [address], [place], [place], [id number]. tel:[phone] OFFICE/OUTPA TIENT VISIT, [facility], [address], [place], [place], [address], [place] tel:[phone] [facility] abdominal pain (chief complaint) Dietary surveillance and counselingAbdominal PainIrritable Colon 3 Jose Serrano. [address], [place], [place], [address] , [place]. tel:[phone] Referring Provider: Zach Garcia [address], [place], [place], [address]. tel:[phone] OFFICE/OUTPA TIENT VISIT, [facility], [address], [place], [place], [address], [place] tel:[phone] [facility] UTI (chief complaint) Dietary surveillance and counselingChronic interstitial cystitisUrinary Tract Infection 2 Jose Serrano. [address], [place], [place], [address] , [place]. tel:[phone] Referring Provider: Robert Kennedy [address], [place], [place], [address]. tel:[phone] Family History Family Member Type Diagnosis Age At Onset Mother Problem (finding) Diabetes mellitus Brother Problem (finding) Alive and well Father Problem (finding) Stroke Mother Problem (finding) Cancer - colon CA Mother Problem (finding) Hypertension Payers Payer name Insurance type Covered democrat ID Authoriza tion(s) No Information Social History Type Description Quantity Date Captured Comments Sex Female Smoking Status No Information Chief Complaint And Reason For Visit No Information Plan Of Treatment Date Type Action Status Referral Ordered: Referral: Gastroentergy. ordered Referral Ordered: US EXAM, ABDOM, COMPLETE ordered History Of Present Illness Encounter Date Complaint History Of Prese nt Illness No Information Instructions Date Instruction Additional Mikayla corley Decrease caloric intake Related to Dietary surveillance counseling Dietary counseling Related to Di etary surveillance counseling Decrease caloric intake Related to Dietary surveillance counseling Dietary counseling Related to Di etary surveillance counseling Decrease caloric intake Related to Dietary surveillance counseling Dietary counseling Related to Di etary surveillance counseling Assessments Type Assessment Date No Information
--- OUTSIDE RECORDS SUMMARY | 2024-06-20 00:41 | XMS_ITS | Clinical Summary ---
Author Organization [facility] Address [address] [place] [address] Care Team Providers Care Concrete Mixing Plant Superintendent Name Role Phone Luis Clayton MD Unavailable [phone] Marilu Hinds MD Primary Care Provider Un available Source Comments [facility],non-owned Affiliates and Associated Physician Practices is amultiple site organization consisting of ambulatory clinics and hospital sitesin [place], [place], [place] and [place]. This disclosure is being madepursuant to the Care Everywhere program and may not contain all information available regarding this patient. Last updated 18.[facility] Allergies Active Allergy Reactions Criticality Noted Date Comments Contrast-Iodinated Agents For Ct/Other Urticaria Medium 08/18/2018 Medications * Be aware that medications may not be up to date on this document. Alwaysverify current medications with the patient. Medication Sig Dispensed Refills Start Date End Date Status Ibuprofen 100 MG Take 6 (six) tablets by mouth every 6 hours as needed Active pantoprazole EC (PROTONIX) 40 MG tablet Take 1 (one) tablet by mouth every morning 12/15/2020 Active Vitamin D3, cholecalciferol, 50 MCG (2000 UT) tablet Take 1 (one) tablet by mouth once daily 10/21/2022 Active Cyanocobalamin (B-12) 1000 MCG DISSOLVE 1 TABLET SUBLINGUALLY DAILY 10/21/2022 Active ezetimibe (Zetia) 10 MG tablet 02/01/2023 Active oxyBUTYnin CR 24hr (Ditropan-XL) 5 MG tablet 02/01/2023 Active amitriptyline (Elavil) 25 MG tabletIndications: Migraine without aura and without status migrainosus, not intractable Take 1 (one) tablet by mouth at bedtime 30 tablet 3 07/19/2023 Active topiramate (Topamax) 50 MG tabletIndications: Migraine without aura and without status migrainosus, not intractable Take 2 (two) tablets by mouth at bedtime 180 tablet 3 07/19/2023 Active Active Problems Problem Noted Date Diagnosed Date Nonintractable headache 03/29/2019 Family History Medical History Relation Name Comments CVA Father Hypertension Father Cancer - Rectal Mother Diabetes - Type 2 Mother Relation Name Status Comments Father Mother Social History Tobacco Use Types Packs/Day Years Used Date Smoking Tobacco: Former Cigarettes Smokeless Tobacco: Never Tobacco Cessation:Counseling Given: Not Answered Sex and Gender Information Value Date Recorded Sex Assigned at Not on file Gender Identity Not on file Sexual Orientation Not on file Last Filed Vital Signs Vital Sign Reading Time Taken Comments Blood Pressure 142/89 07/19/2023 10:54 AM HR ASSISTANT Pulse 78 07/19/2023 10:54 AM HR ASSISTANT Temperature 36.1 ??C (97 ??F) 07/19/2023 10:54 AM HR ASSISTANT Respiratory Rate 20 08/18/2018 12:53 PM CDT Oxygen Saturation 99% 07/19/2023 10:54 AM HR ASSISTANT Inhaled Oxygen Concentration - - Weight 99.8 kg (220 lb) 07/19/2023 10:54 AM HR ASSISTANT Height 165.1 cm (5' 5 ) 02/10/2023 3:02 PM CDT Body Mass Index 36.61 02/10/2023 3:02 PM CDT Plan of Treatment Upcoming Encounters Date Type Department Care Team (Late st Contact Info) Description 07/19/2024 10:30 AM HR ASSISTANT Office Visit [facility] - Neurology [address] [place] [address], [place] [address] Darian Dahliwal, CITY ROUTEMAN-DISTRIBUTION COORDINATOR [address] [place] [address] [place] [id number] Health Maintenance Due Date Last Done Comments COLOGUARD (AGES 45-75) - COL ON CA SCREENING 1977 COLON MONITORING 1977 COLONOSCOPY - COLON CA SCREENING 1977 CT COLONOGRAPHY - COLON CA SCREENING 1977 Colorectal Cancer Screening 1977 FIT - COLON CA SCREENING 1977 FLEX SIG - COLON CA SCREENING 1977 LIPID TESTING 1977 MAMMOGRAM 1977 PAP SMEAR 1977 HIV SCREENING 1992 HEPATITIS C SCREENING 11/22/1995 DTAP/TDAP/TD VACCINES (1 - Tdap) 1996 HEPATITIS B VACCINE (1 of 3 - 19+ 3-dose series) 1996 COVID-19 VACCINE (2023-2 5 season) 2024 INFLUENZA VACCINE (#1) 2024 SCREENING FOR DIABETES 04/30/2024 04/30/2021 DEPRESSION SCREENING 05/24/2024 ZOSTER VACCINE (1 of 2) 11/27/2027 HIB VACCINE Aged Out No longer eligi ble based on patient's age to complete this topic HPV VACCINE Aged Out No longer eligi ble based on patient's age to complete this topic MENINGOCOCCAL (Group B) VACCINE Aged Out No longer eligible based on patient's age to complete this topic MENINGOCOCCAL VACCINE Aged Out No jaz saundra eligible based on patient's age to complete this topic PNEUMOCOCCAL VACCINE Aged Out No long er eligible based on patient's age to complete this topic Procedures Procedure Name Priority Date/Time Associated Diagnosis Comments COMPREHENSIVE METABOLIC PANEL 04/30/2021 9:46 AM HR ASSISTANT from Last 3 Months or Most Recently Relevant to Health Maintenance Results * (ABNORMAL) COMPREHENSIVE METABOLIC PANEL (04/30/2021 9:46 AM HR ASSISTANT) Glucose 112(H) 65 - 99 mg/dL [facility] INSURANCE BILL BUN 10 6 - 24 mg/dL [facility] INSURANCE BILL Creatinine 0.80 0.57 - 1.00 mg/dL [facility] INSURANCE BILL BUN/Creatinine Ratio 13 9 - 23 [facility] INSURANCE BILL Sodium 140 134 - 144 mmol/L [facility] INSURANCE BILL Potassium 4.3 3.5 - 5.2 mmol/L [facility] INSURANCE BILL Chloride 105 96 - 106 mmol/L [facility] INSURANCE BILL CO2 22 20 - 29 mmol/L [facility] INSURANCE BILL Calcium 9.0 8.7 - 10.2 mg/dL [facility] INSURANCE BILL Protein Total 6.7 6.0 - 8.5 g/dL [facility] INSURANCE BILL Albumin 4.2 3.8 - 4.8 g/dL [facility] INSURANCE BILL Globulin Total 2.5 1.5 - 4.5 g/dL [facility] INSURANCE BILL Albumin/Globulin Ratio 1.7 1.2 - 2.2 [facility] INSURANCE BILL Bilirubin Total 0.3 0.0 - 1.2 mg/dL [facility] INSURANCE BILL Alkaline Phosphatase 86 44 - 121 IU/L [facility] INSURANCE BILL Comment:Please note refere nce interval change AST 19 0 - 40 IU/L [facility] INSURANCE BILL ALT 24 0 - 32 IU/L [facility] INSURANCE BILL Comment:FASTING 04/30/2021 9:46 AM HR ASSISTANT 04/30/2021 Narrative Resulting Agency Comment Lab Testing performed at: Lab[address] ??[facility] [id number] Rick Billy MD LAB - CHEMISTRY JOANNA ACOSTA [facility] INSURANCE BILL [address] [place] [address] from Last 3 Months or Most Recently Relevant to Health Maintenance Care Teams [employer] Superintendent Relationship Specialty Start Date End Date Marilu Hinds MD [address] [place] [address] PCP - General 03/29/19 Luis Clayton MD [address] [place] [address] Family Medicine 04/04/18
--- OUTSIDE RECORDS SUMMARY | 2024-06-20 00:41 | XMS_ITS | Referral Summary ---
Author Organization [facility] Address [address] [address] Care Team Providers Care Career Services Director Name Role Phone Luis Clayton MD Unavailable [phone] Marilu Hinds MD Primary Care Provider Un available Source Comments [facility],non-owned Affiliates and Associated Physician Practices is amultiple site organization consisting of ambulatory clinics and hospital sitesin [place], [place], [place] and [place]. This disclosure is being madepursuant to the Care Everywhere program and may not contain all information available regarding this patient. Last updated 18.[facility] Allergies Active Allergy Reactions Criticality Noted [...] Noted Date Diagnosed Date Nonintractable headache 03/29/2019 Social History Tobacco Use Types Packs/Day Years Used Date Smoking Tobacco: Former Cigarettes Smokeless Tobacco: Never Tobacco Cessation:Counseling Given: Not Answered Sex and Gender Information Value Date Recorded Sex Assigned at Not on file Gender Identity Not on file Sexual Orientation Not on file Last Filed Vital Signs Vital Sign Reading Time Taken Comments Blood Pressure 142/89 07/19/2023 10:54 AM AUTOMATIC TIRE TESTER Pulse 78 07/19/2023 10:54 AM AUTOMATIC TIRE TESTER Temperature 36.1 ??C (97 ??F) 07/19/2023 10:54 AM AUTOMATIC TIRE TESTER Respiratory Rate 20 08/18/2018 12:53 PM CDT Oxygen Saturation 99% 07/19/2023 10:54 AM AUTOMATIC TIRE TESTER Inhaled Oxygen Concentration - - Weight 99.8 kg (220 lb) 07/19/2023 10:54 AM AUTOMATIC TIRE TESTER Height 165.1 cm (5' 5 ) 02/10/2023 3:02 PM CDT Body Mass Index 36.61 02/10/2023 3:02 PM CDT Plan of Treatment Upcoming Encounters Date Type Department Care Team (Late st Contact Info) Description 07/19/2024 10:30 AM AUTOMATIC TIRE TESTER Office Visit [facility] - Neurology [address] [place] [address], [place] [place] [address] Darian Dhaliwal, EQUINE BREEDER-SNAKE CHARMER [address] [place] [address] [place] [address] Procedures Procedure Name Priority Date/Time Associated Diagnosis Comments COMPREHENSIVE METABOLIC PANEL 04/30/2021 9:46 AM AUTOMATIC TIRE TESTER from Last 3 Months or Most Recently Relevant to Health Maintenance Results * (ABNORMAL) COMPREHENSIVE METABOLIC PANEL (04/30/2021 9:46 AM AUTOMATIC TIRE TESTER) Glucose 112(H) 65 - 99 mg/dL [facility] [...] [facility] INSURANCE BILL Comment:FASTING 04/30/2021 9:46 AM AUTOMATIC TIRE TESTER 04/30/2021 Narrative Resulting Agency Comment Lab Testing performed at: [place] [id number] ??[facility] [id number] Rick Billy MD LAB - CHEMISTRY JOANNA ACOSTA [facility] INSURANCE BILL [address] [place] [address] from Last 3 Months or Most Recently Relevant to Health Maintenance Care Teams Career Services Director Relationship Specialty Start Date End Date Marilu Hinds MD [address] [place] [address] PCP - General 03/29/19 Luis Clayton MD [address] [place], [place] [id number] Family Medicine 04/04/18
--- OUTSIDE RECORDS SUMMARY | 2024-06-20 00:41 | XMS_ITS | Patient Health Summary ---
Author Organization [facility] Address [address] [place] [address] Care Team Providers Care Transportation Consultant Name Role Phone Luis Clayton MD Unavailable [phone] Marilu Hinds MD Primary Care Provider Un available Note from [facility],non-owned Affiliates and Associated Physician Practices is amultiple site organization consisting of ambulatory clinics and hospital sitesin [place], [place], [place] and [place]. This disclosure is being madepursuant to the Care Everywhere program and may not contain all information available regarding this patient. Last updated 18.[facility] Allergies * Contrast-Iodinated Agents For Ct/Other(Urticaria) -Medium Criticality Medications * Be aware that medications may not be up to date on this document. Alwaysverify current medications with the patient. * Ibuprofen 100 MG Take 6 (six) tablets by mouth every 6 hours as needed * pantoprazole EC (PROTONIX) 40 MG tablet(Started 12/15/2020) Take 1 (one) tablet by mouth every morning * Vitamin D3, cholecalciferol, 50 MCG (2000 UT) tablet(Started 10/21/2022) Take 1 (one) tablet by mouth once daily * Cyanocobalamin (B-12) 1000 MCG(Started 10/21/2022) DISSOLVE 1 TABLET SUBLINGUALLY DAILY * ezetimibe (Zetia) 10 MG tablet(Started 02/01/2023) * oxyBUTYnin CR 24hr (Ditropan-XL) 5 MG tablet(Started 02/01/2023) * amitriptyline (Elavil) 25 MG tablet(Started 07/19/2023) Take 1 (one) tablet by mouth at bedtime 3 refills by 07/18/2024 * topiramate (Topamax) 50 MG tablet(Started 07/19/2023) Take 2 (two) tablets by mouth at bedtime 3 refills by 07/18/2024 Active Problems Problem Noted Date Diagnosed Date [...] Comments Blood Pressure 142/89 07/19/2023 10:54 AM COMMERCIAL ENERGY RATER Pulse 78 07/19/2023 10:54 AM COMMERCIAL ENERGY RATER Temperature 36.1 ??C (97 ??F) 07/19/2023 10:54 AM COMMERCIAL ENERGY RATER Respiratory Rate 20 08/18/2018 12:53 PM CDT Oxygen Saturation 99% 07/19/2023 10:54 AM COMMERCIAL ENERGY RATER Inhaled Oxygen Concentration - - Weight 99.8 kg (220 lb) 07/19/2023 10:54 AM COMMERCIAL ENERGY RATER Height 165.1 cm (5' 5 ) 02/10/2023 3:02 PM CDT Body Mass Index 36.61 02/10/2023 3:02 PM CDT Procedures * MRI BRAIN WO CONTRAST(Performed 05/15/2023) Performed for Migraine without aura and without status migrainosus, not intractable * MRI ANGIO BRAIN ARTERIAL WO CONT(Performed 05/15/2023) Performed for Thunderclap headache * LAB RESULTS ORDER(Performed 05/01/2021) * LAB RESULTS ORDER(Performed 05/01/2021) * ALDOLASE(Performed 04/30/2021) * CK BLOOD(Performed 04/30/2021) * TSH(Performed 04/30/2021) * COMPREHENSIVE METABOLIC PANEL(Performed 04/30/2021) * CBC W AUTO DIFFERENTIAL(Performed 04/30/2021) * STREP A SCREEN - POINT OF CARE (AMB) STL(Performed 06/08/2017) Performed for Right ear pain Results * MRI BRAIN WO CONTRAST (05/15/2023 11:07 AM COMMERCIAL ENERGY RATER) Anatomical Region Laterality Modality Head Magnetic Resonan ce 05/16/2023 2:58 PM COMMERCIAL ENERGY RATER Impressions 05/16/2023 9:42 PM COMMERCIAL ENERGY RATER IMPRESSION: 1.No acute intracranial process. Specifically, no acute infarct or acute intracranial hemorrhage. 2.No evidence of aneurysm or high-grade stenosis of the intracranial large vessels. 3.If there is continued concern for are RCVS, catheter angiography could be performed for further evaluation. The report is dictated by Ena Sifuentes MD (vice president tax) I, Torri Chamberlain MD have personally reviewed and interpreted this examination/study. > Interpreting Provider: Torri Chamberlain MD on 05/16/2023 9:42 PM Narrative 05/16/2023 9:42 PM COMMERCIAL ENERGY RATER PROCEDURE: ??MRI ANGIO BRAIN ARTERIAL WO CONT, MRI BRAIN WO CONTRAST, DATE/TIME OF EXAM: ??05/15/2023 11:07 AM, LOCATION ??[facility] INDICATION:G44.53: Thunderclap headache ADDITIONAL CLINICAL INFORMATION:Ordering Provider Reason For Exam: Lighting like headaches, evaluate for evidence of Reversible Cerebral Vasoconsrtive Syndrome. (accession [id number]), headaches, with blurred vision. Evaluate for lesion contributing to symptoms. (accession [id number]) EXAMINATION: 1.Magnetic resonance imaging (MRI) of the brain without contrast 2.Magnetic resonance angiography (MRA) of the head without contrast TECHNIQUE: MRI of the brain was performed without intravenous contrast according to standard protocol. MRA of in the the lusanp-xj-Xqieaz was performed using a zaiw-ox-rnqtyy technique without contrast. FINDINGS: Brain: No evidence of acute or chronic hemorrhage is identified. No evidence of acute cerebral infarction is seen. Mild nonspecific prominence of the ventricles. The ventricles are otherwise normal in shape and morphology. No mass effect or midline shift is seen. Mild periventricular white matter FLAIR hyperintensities are nonspecific. Other than a partially empty sella, the corpus callosum and sella appear normal. Borderline low-lying cerebellar tonsils down to the level of the foramen magnum. The posterior fossa, brainstem, and craniocervical junction appear normal. The visualized portions of the orbits, paranasal sinuses, and mastoids appear normal. Normal flow voids are demonstrated in the carotid arteries and basilar artery. The calvarium and visualized cervical spine appear normal. Angiographic findings: Mild atherosclerotic disease of the distal internal carotid arteries. The distal internal carotid arteries appear otherwise patent. The anterior and middle cerebral arteries appear normal. The left vertebral artery is dominant. The distal vertebral arteries appear normal. Incidentally noted origin of the right posterior cerebral artery. The basilar artery and posterior cerebral arteries appear normal. No aneurysms or intracranial stenoses are identified. Procedure Note Torri Chamberlain MD - 05/16/2023 PROCEDURE: MRI ANGIO BRAIN ARTERIAL WO CONT, MRI BRAIN WO CONTRAST, DATE/TIME OF EXAM: 05/15/2023 11:07 AM, LOCATION [facility] INDICATION:G44.53: Thunderclap headache ADDITIONAL CLINICAL INFORMATION:Ordering Provider Reason For Exam: Lighting like headaches, evaluate for evidence of Reversible Cerebral Vasoconsrtive Syndrome. (accession [id number]), headaches, with blurred vision. Evaluate for lesion contributing to symptoms. ([id number]) EXAMINATION: 1.Magnetic resonance imaging (MRI) of the brain without contrast 2.Magnetic resonance angiography (MRA) of the head without contrast TECHNIQUE: MRI of the brain was performed without intravenous contrast according to standard protocol. MRA of in the the wvhbzm-jr-Cijurj was performed using a vvuy-vu-jycieq technique without contrast. FINDINGS: Brain: No evidence of acute or chronic hemorrhage is identified. No evidence of acute cerebral infarction is seen. Mild nonspecific prominence of the ventricles. The ventricles are otherwise normal in shape and morphology.No mass effect or midline shift is seen. Mild periventricular white matter FLAIR hyperintensities are nonspecific. Other than a partially emptysella, the corpus callosum and sella appear normal. Borderline low-lying cerebellar tonsils down to the level of the foramen magnum. Theposterior fossa, brainstem, and craniocervical junction appear normal. The visualized portions of the orbits, paranasal sinuses, and mastoids appear normal. Normal flow voids are demonstrated in the carotidarteries and basilar artery. The calvarium and visualized cervical spine appear normal. Angiographic findings: Mild atherosclerotic disease of the distal internal carotid arteries.The distal internal carotid arteries appear otherwise patent. The anteriorand middle cerebral arteries appear normal. The left vertebral artery is dominant. The distal vertebral arteries appear normal. Incidentallynoted origin of the right posterior cerebral artery. The basilar arteryand posterior cerebral arteries appear normal. No aneurysms or intracranial stenoses are identified. IMPRESSION: 1.No acute intracranial process. Specifically, no acute infarct or acute intracranial hemorrhage. 2.No evidence of aneurysm or high-grade stenosis of the intracraniallarge vessels. 3.If there is continued concern for are RCVS, catheter angiography couldbe performed for further evaluation. The report is dictated by Ena Sifuentes MD (vice president tax) Torri Balderas MD have personally reviewed and interpretedthis examination/study. > Interpreting Provider: Torri Chamberlain MD on 05/16/2023 9:42 PM Rick Billy MD MR ORDERABLES * MRI ANGIO BRAIN ARTERIAL WO CONT (05/15/2023 11:07 AM COMMERCIAL ENERGY RATER) Anatomical Region Laterality Modality Head Magnetic Resonan ce 05/16/2023 2:58 PM COMMERCIAL ENERGY RATER Impressions 05/16/2023 9:42 PM COMMERCIAL ENERGY RATER IMPRESSION: 1.No acute intracranial process. Specifically, no acute infarct or acute intracranial hemorrhage. 2.No evidence of aneurysm or high-grade stenosis of the intracranial large vessels. 3.If there is continued concern for are RCVS, catheter angiography could be performed for further evaluation. The report is dictated by Ena Sifuentes MD (vice president tax) Torri Balderas MD have personally reviewed and interpreted this examination/study. > Interpreting Provider: Torri Chamberlain MD on 05/16/2023 9:42 PM Narrative 05/16/2023 9:42 PM COMMERCIAL ENERGY RATER PROCEDURE: ??MRI ANGIO BRAIN ARTERIAL WO CONT, MRI BRAIN WO CONTRAST, DATE/TIME OF EXAM: ??05/15/2023 11:07 AM, LOCATION ??[facility] INDICATION:G44.53: Thunderclap headache ADDITIONAL CLINICAL INFORMATION:Ordering Provider Reason For Exam: Lighting like headaches, evaluate for evidence of Reversible Cerebral Vasoconsrtive Syndrome. (accession [id number]), headaches, with blurred vision. Evaluate for lesion contributing to symptoms. (accession [id number]) EXAMINATION: 1.Magnetic resonance imaging (MRI) of the brain without contrast 2.Magnetic resonance angiography (MRA) of the head without contrast TECHNIQUE: MRI of the brain was performed without intravenous contrast according to standard protocol. MRA of in the the mkzyiv-vf-Ybtfoq was performed using a qztu-kq-tnskos technique without contrast. FINDINGS: Brain: No evidence of acute or chronic hemorrhage is identified. No evidence of acute cerebral infarction is seen. Mild nonspecific prominence of the ventricles. The ventricles are otherwise normal in shape and morphology. No mass effect or midline shift is seen. Mild periventricular white matter FLAIR hyperintensities are nonspecific. Other than a partially empty sella, the corpus callosum and sella appear normal. Borderline low-lying cerebellar tonsils down to the level of the foramen magnum. The posterior fossa, brainstem, and craniocervical junction appear normal. The visualized portions of the orbits, paranasal sinuses, and mastoids appear normal. Normal flow voids are demonstrated in the carotid arteries and basilar artery. The calvarium and visualized cervical spine appear normal. Angiographic findings: Mild atherosclerotic disease of the distal internal carotid arteries. The distal internal carotid arteries appear otherwise patent. The anterior and middle cerebral arteries appear normal. The left vertebral artery is dominant. The distal vertebral arteries appear normal. Incidentally noted origin of the right posterior cerebral artery. The basilar artery and posterior cerebral arteries appear normal. No aneurysms or intracranial stenoses are identified. Procedure Note Torri Chamberlain MD - 05/16/2023 PROCEDURE: MRI ANGIO BRAIN ARTERIAL WO CONT, MRI BRAIN WO CONTRAST, DATE/TIME OF EXAM: 05/15/2023 11:07 AM, LOCATION [facility] INDICATION:G44.53: Thunderclap headache ADDITIONAL CLINICAL INFORMATION:Ordering Provider Reason For Exam: Lighting like headaches, evaluate for evidence of Reversible Cerebral Vasoconsrtive Syndrome. (accession [id number]), headaches, with blurred vision. Evaluate for lesion contributing to symptoms. ([id number]) EXAMINATION: 1.Magnetic resonance imaging (MRI) of the brain without contrast 2.Magnetic resonance angiography (MRA) of the head without contrast TECHNIQUE: MRI of the brain was performed without intravenous contrast according to standard protocol. MRA of in the the oxzvpw-wj-Prnufn was performed using a lzhj-cz-ntcyol technique without contrast. FINDINGS: Brain: No evidence of acute or chronic hemorrhage is identified. No evidence of acute cerebral infarction is seen. Mild nonspecific prominence of the ventricles. The ventricles are otherwise normal in shape and morphology.No mass effect or midline shift is seen. Mild periventricular white matter FLAIR hyperintensities are nonspecific. Other than a partially emptysella, the corpus callosum and sella appear normal. Borderline low-lying cerebellar tonsils down to the level of the foramen magnum. Theposterior fossa, brainstem, and craniocervical junction appear normal. The visualized portions of the orbits, paranasal sinuses, and mastoids appear normal. Normal flow voids are demonstrated in the carotidarteries and basilar artery. The calvarium and visualized cervical spine appear normal. Angiographic findings: Mild atherosclerotic disease of the distal internal carotid arteries.The distal internal carotid arteries appear otherwise patent. The anteriorand middle cerebral arteries appear normal. The left vertebral artery is dominant. The distal vertebral arteries appear normal. Incidentallynoted origin of the right posterior cerebral artery. The basilar arteryand posterior cerebral arteries appear normal. No aneurysms or intracranial stenoses are identified. IMPRESSION: 1.No acute intracranial process. Specifically, no acute infarct or acute intracranial hemorrhage. 2.No evidence of aneurysm or high-grade stenosis of the intracraniallarge vessels. 3.If there is continued concern for are RCVS, catheter angiography couldbe performed for further evaluation. The report is dictated by Ena Sifuentes MD (vice president tax) I, Torri Chamberlain MD have personally reviewed and interpretedthis examination/study. > Interpreting Provider: Torri Chamberlain MD on 05/16/2023 9:42 PM Rick Billy MD MR ORDERABLES * LAB RESULTS ORDER (05/01/2021) Only the most recent of2 resultswithin the time period is included. 05/01/2021 Narrative 05/01/2021 Ordered by an unspecified provider. Scanned Document LAB - THERAPEUTIC DR UG MONITORING ORDERABLES * ALDOLASE (04/30/2021 9:46 AM COMMERCIAL ENERGY RATER) Aldolase 4.8 3.3 - 10.3 U/L [facility] INSURANCE BILL Comment:FASTING 04/30/2021 9:46 AM COMMERCIAL ENERGY RATER 04/30/2021 Narrative Resulting Agency Comment Lab Testing performed at: [facility] [address] [facility] ??Critical access hospital [id number] Rick Billy MD LAB - CHEMISTRY JOANNA ACOSTA [facility] INSURANCE BILL [address] [place] [address] * CBC WITH DIFFERENTIAL (04/30/2021 9:46 AM COMMERCIAL ENERGY RATER) WBC 6.5 3.4 - 10.8 x10E3/uL [facility] INSURANCE BILL RBC 4.81 3.77 - 5.28 x10E6/uL [facility] INSURANCE BILL Hemoglobin 14.2 11.1 - 15.9 g/dL [facility] INSURANCE BILL Hematocrit 43.2 34.0 - 46.6 % [facility] INSURANCE BILL MCV 90 79 - 97 fL [facility] INSURANCE BILL MCH 29.5 26.6 - 33.0 pg [facility] INSURANCE BILL MCHC 32.9 31.5 - 35.7 g/dL [facility] INSURANCE BILL RDW 12.4 11.7 - 15.4 % [facility] INSURANCE BILL Platelet Count 317 150 - 450 x10E3/uL [facility] INSURANCE BILL Granulocytes % 60 Not Estab. % [facility] INSURANCE BILL Lymphocytes % 30 Not Estab. % [facility] INSURANCE BILL Monocytes % 5 Not Estab. % [facility] INSURANCE BILL Eosinophils % 4 Not Estab. % [facility] INSURANCE BILL Basophils % 1 Not Estab. % [facility] INSURANCE BILL Immature Cells NOT NEEDED [facility] INSURANCE BILL Comment:Ancillary determined the test is not needed. Granulocytes Absolute 3.9 1.4 - 7.0 x10E3/uL [facility] INSURANCE BILL Lymphocytes Absolute 2.0 0.7 - 3.1 x10E3/uL [facility] INSURANCE BILL Monocytes Absolute 0.4 0.1 - 0.9 x10E3/uL [facility] INSURANCE BILL Eosinophils Absolute 0.2 0.0 - 0.4 x10E3/uL [facility] INSURANCE BILL Basophils Absolute 0.0 0.0 - 0.2 x10E3/uL [facility] INSURANCE BILL Immature Granulocytes 0 Not Estab. % [facility] INSURANCE BILL Immature Granulocytes Absolute 0.0 0.0 - 0.1 x10E3/uL [facility] INSURANCE BILL nRBC NOT NEEDED [facility] INSURANCE BILL Comment:Ancillary determined the test is not needed. Comment Hematology NOT NEEDED [facility] INSURANCE BILL Comment: FASTING Ancillary determined the test is not needed. 04/30/2021 9:46 AM COMMERCIAL ENERGY RATER 04/30/2021 Narrative Resulting Agency Comment Lab Testing performed at: [facility] ??Critical access hospital [id number] Rick Billy MD LAB - HEMATOLOGY ORD ERABLES [facility] INSURANCE BILL [address] [place] [address] * (ABNORMAL) COMPREHENSIVE METABOLIC PANEL (04/30/2021 9:46 AM COMMERCIAL ENERGY RATER) Glucose 112(H) 65 - 99 mg/dL [facility] [...] [facility] INSURANCE BILL Comment:FASTING 04/30/2021 9:46 AM COMMERCIAL ENERGY RATER 04/30/2021 Narrative Resulting Agency Comment Lab Testing performed at: [facility] [address] ??Critical access hospital [id number] Rick Billy MD LAB - CHEMISTRY JOANNA ACOSTA Performing Organization Address City/[facility]/ZIP Co de Phone Number [facility] INSURANCE BILL [address] [place] [address] * CK BLOOD (04/30/2021 9:46 AM COMMERCIAL ENERGY RATER) Pathologist [facility] CK 103 32 - 182 U/L [facility] INSURANCE BILL Comment:FASTING 04/30/2021 9:46 AM COMMERCIAL ENERGY RATER 04/30/2021 Narrative Resulting Agency Comment Lab Testing performed at: [facility] [address] ??Critical access hospital [id number] Rick Billy MD LAB - CHEMISTRY JOANNA ACOSTA Performing Organization Address [facility] Co de Phone Number [facility] INSURANCE BILL [address] [place] [address] * TSH (04/30/2021 9:46 AM COMMERCIAL ENERGY RATER) [facility] TSH 0.890 0.450 - 4.500 uIU/mL [facility] INSURANCE BILL Comment:FASTING 04/30/2021 9:46 AM COMMERCIAL ENERGY RATER 04/30/2021 Narrative Resulting Agency Comment Lab Testing performed at: [address] ??Critical access hospital [id number] Rick Billy MD LAB - CHEMISTRY JOANNA ACOSTA Performing Organization Address [facility] Co de Phone Number [facility] INSURANCE BILL [address] [place] [address] * (ABNORMAL) STREP A SCREEN - POINT OF CARE (AMB) STL (06/08/2017 6:19 PM COMMERCIAL ENERGY RATER) Pathologist [facility] Strep A Rapid POCT Negative(A) Negative Strep A Internal Control Present Lot # [id number] Expiration Date 01 12 2019 Throat ENTIRE THROAT (SURFACE REGION OF NECK) / Unknown 06/08/2017 6:19 PM COMMERCIAL ENERGY RATER Susana Cason [employer] TEACHER[employer]SALES REPRESENTATIVE LAB - POINT OF CA RE ORDERABLES Care Teams Transportation Consultant Relationship Specialty Start Date End Date Marilu Hinds MD [address] [place] [address] PCP - General 03/29/19 Luis Clayton MD [address] [place] [address] Family Medicine 04/04/18
--- OUTSIDE RECORDS SUMMARY | 2024-06-20 00:41 | XMS_ITS | Clinical Summary ---
Author Organization [facility] Address [address] [place] [address] Care Team Providers Care Conditioning Coach Name Role Phone Unavailable Primary Care Provider Unavailabl e Social History Tobacco Use Types Packs/Day Years Used Date Smoking Tobacco: Never Assessed Comments Unknown Sex and Gender Information Value Date Recorded Sex Assigned at Not on file Legal Sex Female 2:30 PM CDT Gender Identity Not on file Sexual Orientation Not on file Plan of Treatment Health Maintenance Due Date Last Done Comments Hepatitis C Virus (HCV) Screening 1977 TdaP Immunization 1977 Hepatitis B Immunization (1 of 3 - 19+ 3-dose series) 1996 Pap Smear 1998 Cervical Cancer Screening (CCS) 11/27/2007 HPV/Cotest 11/27/2007 Discussion re Starting/Frequ ency of Mammograms 2017 Colonoscopy 2022 Colorectal Cancer Screening 2022 Influenza Immunization (#1) 2024 SARS-COV-2 Immunization ( season) 2024 Respiratory Syncytial Virus (RSV) Immunization (Adult) (1 - 1-dose 75+ series) 2052 Meningococcal Immunization (ACWY) Aged Out No longer eligible based on patient's age to complete this topic Pneumococcal Immunization Combined Aged Out No longer eligible based on patient's age to complete this topic Rotavirus Immunization Aged Out No lo nger eligible based on patient's age to complete this topic
[2024-06-20 07:53] VITALS: BP 116/79; PULSE 65; RESP 18; TEMP 36.1; O2SAT 99; BMI 29.2
--- NOTE | 2024-06-20 07:56 | P.PNAN_ITS ---
Anes - Initial Pre Proc Eval Procedure: Operation Date: 06/20/24 09:00 Proposed Procedures p Colonoscopy - Fazla Johnson MD Date/Time: 06/20/24 07:56 Surgeon: Fazal Johnson MD Pre Op Diagnosis: hx of colon polyps, family hx of cancer Patient Data Age: 48 Gender: F Height: 1.65 m Weight: 79.8 kg Last Vital Signs Temp 36.1 C L 06/20/24 07:53 Pulse 65 06/20/24 07:53 Resp 18 06/20/24 07:53 BP 116/79 06/20/24 07:53 Pulse Ox 99 06/20/24 07:53 O2 Del Method Room Air 06/20/24 07:53 Allergies Allergy/AdvReac Type Severity Reaction Status Date / Time Iodinated Contrast Media Allergy Severe hives Verified 06/20/24 07:51 Home Medications ?Medication ?Instructions ?Recorded ?Confirmed ?Type amitriptyline 25 mg tablet 25 mg PO HS 04/03/19 06/20/24 History topiramate 50 mg tablet (Topamax) 50 mg PO BID 12/13/20 06/20/24 History ezetimibe 10 mg tablet 10 mg PO DAILY #90 tabs 06/21/23 06/20/24 Rx pantoprazole 40 mg tablet,delayed 40 mg PO BID 3 months #180 tabs 06/25/23 06/20/24 Rx release magnesium aspart,citrate,oxide 250 mg PO BID 04/19/24 06/20/24 History cholecalciferol (vitamin D3) 50 50 mcg PO DAILY #90 tabs 05/26/24 06/20/24 Rx mcg (2,000 unit) tablet cyanocobalamin (vitamin B-12) 1,000 mcg sublingual DAILY #90 tabs 05/26/24 06/20/24 Rx 1,000 mcg sublingual tablet oxybutynin chloride 10 mg 10 mg PO DAILY #90 tabs 05/26/24 06/20/24 Rx tablet,extended release 24 hr Patient hx anesthesia problems: none Family hx anesthesia problems: none Results Review: All pre-operative results and documents have been reviewed as part of the pre- operative evaluation. [facility] Past Medical History Medical History Adenomatous colon polyp (~04/2019) Chronic left-sided low back pain without sciatica Cough Depression with anxiety Dyspepsia Erosive gastritis Family history of colon cancer Fatigue GERD (gastroesophageal reflux disease) Hx of adenomatous colonic polyps Hx of gastric ulcer Hyperlipidemia LUQ pain Migraine Obesity Stress bladder incontinence, female Surgical History Surgical History History of hysterectomy Hx of arthroscopic knee surgery (~05/2016) Family History Family History Father Cerebrovascular accident Hypertension Carcinoma of colon Mother Diabetes mellitus Family history of osteoarthritis Carcinoma of colon Other Family history of arthritis Family history of malignant neoplasm Family history of malignant neoplasm of ovary Social History Social History Smoking packs per day: 1 Smoking cigarettes per day: 20.0 Years smoked: 20 Smoking pack-years: 20.00 Smoking status: Former smoker Tobacco type: cigarettes Second hand tobacco smoke exposure: No Smoking end date: 05/24/15 Alcohol intake: never Substance use: never Substance use type: does not use Lack of Transportation: No Lack of Food: Never True Current Housing: I Have Housing Concerned About Future Housing: No Difficulty Paying Gas/Electric Bills: No Difficulty Paying for Meds: No Currently Unemployed: No Education: Associate Degree Difficulty w/ Childcare or Family Care: Decline to Answer Living arrangements: with family Spiritual care concerns: No Anes - Eval Final PreProcedure Day of Procedure 06/20/24 07:56 Patient weight: overweight Heart: regular rate and rhythm Lungs: clear to auscultation Airway: Mallampati scale class II Neurological: alert and oriented Last oral intake: >/= 8 hours ASA classification: II Emergent: no Anesthetic plan: proceed Anesthesia type and monitoring: general GIVS and standard monitoring Results Review: All pre-operative results and documents have been reviewed as part of the pre- operative evaluation. Informed Consent: The patient's anesthetic plan and its attendant risks and benefits were discussed with the patient/family/POA. Questions were solicited and answers provided to the satisfaction of the patient/family/POA.
[2024-06-20] MEDS: LACTATED RINGERS 1,000 ML 150 ML IV CONT (08:01)
--- NOTE | 2024-06-20 09:06 | PM.IMHP ---
H&P: HPI History of Present Illness Date/Time: 06/20/24 09:06 Chief Complaint: Family history of colon cancer Narrative: This patient has family history of colorectal cancer. her mother had colorectal cancer at age 45. Review of Systems Review of Systems: All systems reviewed & are unremarkable except as noted in HPI and below PMFSH Past Medical History Medical History Adenomatous colon polyp (~04/2019) Chronic left-sided low back pain without sciatica Cough Depression with anxiety Dyspepsia Erosive gastritis Family history of colon cancer Fatigue GERD (gastroesophageal reflux disease) Hx of adenomatous colonic polyps Hx of gastric ulcer Hyperlipidemia LUQ pain Migraine Obesity Stress bladder incontinence, female Surgical History Surgical History History of hysterectomy Hx of arthroscopic knee surgery (~05/2016) Family History Family History Father Cerebrovascular accident Hypertension Carcinoma of colon Mother Diabetes mellitus Family history of osteoarthritis Carcinoma of colon Other Family history of arthritis Family history of malignant neoplasm Family history of malignant neoplasm of ovary Social History Social History Smoking packs per day: 1 Smoking cigarettes per day: 20.0 Years smoked: 20 Smoking pack-years: 20.00 Smoking status: Former smoker Tobacco type: cigarettes Second hand tobacco smoke exposure: No Smoking end date: 05/24/15 Alcohol intake: never Substance use: never Substance use type: does not use Lack of Transportation: No Lack of Food: Never True Current Housing: I Have Housing Concerned About Future Housing: No Difficulty Paying Gas/Electric Bills: No Difficulty Paying for Meds: No Currently Unemployed: No Education: Associate Degree Difficulty w/ Childcare or Family Care: Decline to Answer Living arrangements: with family Spiritual care concerns: No Meds Home Medications and Allergies Home Medications ?Medication ?Instructions ?Recorded ?Confirmed ?Type amitriptyline 25 mg tablet 25 mg PO HS 04/03/19 06/20/24 History topiramate 50 mg tablet (Topamax) 50 mg PO BID 12/13/20 06/20/24 History ezetimibe 10 mg tablet 10 mg PO DAILY #90 tabs 06/21/23 06/20/24 Rx pantoprazole 40 mg tablet,delayed 40 mg PO BID 3 months #180 tabs 06/25/23 06/20/24 Rx release magnesium aspart,citrate,oxide 250 mg PO BID 04/19/24 06/20/24 History cholecalciferol (vitamin D3) 50 50 mcg PO DAILY #90 tabs 05/26/24 06/20/24 Rx mcg (2,000 unit) tablet cyanocobalamin (vitamin B-12) 1,000 mcg sublingual DAILY #90 tabs 05/26/24 06/20/24 Rx 1,000 mcg sublingual tablet oxybutynin chloride 10 mg 10 mg PO DAILY #90 tabs 05/26/24 06/20/24 Rx tablet,extended release 24 hr Allergies Allergy/AdvReac Type Severity Reaction Status Date / Time Iodinated Contrast Media Allergy Severe hives Verified 06/20/24 07:51 Vital Signs Vital Signs - 24 hr 06/20/24 07:53 Temperature 97 F L Pulse Rate 65 Respiratory Rate 18 Blood Pressure 116/79 Pulse Oximetry 99 Oxygen Delivery Room Air Exam Const: General: cooperative and healthy appearing Resp: Effort & Inspection: normal respiratory effort and able to speak in complete sentences Auscultation: clear to auscultation bilaterally Cardio: Rate: regular rate Rhythm: regular rhythm GI: Inspection: normal to inspection GI Palp: No No hepatosplenomegaly present Auscultation: normal bowel sounds Rectal Exam: deferred Skin: General skin exam: normal color Psych: Appearance: grossly normal Mental Status: mental status grossly normal Assessment and Plan Assessment and plan (1) Family history of colon cancer: Code(s): Z80.0 - Family history of malignant neoplasm of digestive organs Status: Acute Assessment and Plan: The patient is deemed a good candidate for the procedure. Consent signed. Will proceed.
[2024-06-20 09:39] VITALS: BP 111/70; PULSE 68; RESP 18; O2SAT 100
[2024-06-20 09:49] VITALS: BP 120/71; PULSE 64; RESP 19; O2SAT 100
[2024-06-20 09:59] VITALS: BP 110/78; PULSE 63; RESP 20; O2SAT 100
== END 2024-06-20 10:08 | disposition home or self-care (01) ==
PROVIDERS: PCP Family Medicine; Referring Provider Nurse Practitioner; Visit Provider Internal Medicine Gastroenterology
PROC: 0DJD8ZZ Inspection of Lower Intestinal Tract, Via Natural or Artificial Opening Endoscopic (ICD-10-PCS; CPT 45378; principal; 2024-06-20 09:00)
DX: Z12.11 Encounter for screening for malignant neoplasm of colon (principal); D12.2 Benign neoplasm of ascending colon; K63.5 Polyp of colon; K57.30 Diverticulosis of large intestine without perforation or abscess without bleeding; Z80.0 Family history of malignant neoplasm of digestive organs; Z87.891 Personal history of nicotine dependence
CPT/HCPCS: 45385; 88305; J2704; J7120

== ENCOUNTER 2024-09-05 10:41 | Outpatient (CLI) | payer BC, SELFPAY ==
--- NOTE | ~2024-09-05 | MM_ITS ---
EXAMINATION: MM screening codie BI w merline HISTORY: Screening TECHNIQUE: Craniocaudal and mediolateral oblique 3-D tomosynthesis images were obtained and synthetic 2-D images were generated. CAD analysis was submitted and interpreted. COMPARISON: Comparison to multiple prior studies sequentially, with oldest reviewed study dated 07/20.. BREAST PARENCHYMAL COMPOSITION: Not dense: There are scattered areas of fibroglandular density. FINDINGS: There is no evidence of suspicious mass, calcification, or architectural distortion to sugg est malignancy in either breast. There has been no suspicious interval change. IMPRESSION: 1. No mammographic evidence of malignancy. 2. Recommend routine screening mammography in one year. BI-RADS Category 1: Negative Reviewed, dictated and finalized at location B.
== END 2024-09-05 10:42 | disposition home or self-care (01) ==
LOC: MICIMG 10:41
PROVIDERS: PCP Nurse Practitioner Family; Visit Provider Nurse Practitioner Family
DX: Z12.31 Encounter for screening mammogram for malignant neoplasm of breast (principal)
CPT/HCPCS: 77063; 77067

== ENCOUNTER 2025-05-21 10:01 | Emergency (ER) | payer BC, SELFPAY ==
[2025-05-21 10:14] VITALS: BP 132/82; PULSE 61; RESP 20; TEMP 36.8; O2SAT 100
--- NOTE | 2025-05-21 10:16 | ED.URI ---
HPI - URI/Sore Throat General Chief Complaint: Upper Respiratory Infection Stated Complaint: Strep Symptoms Time Seen by Provider: 05/21/25 10:03 Source: patient Mode of arrival: ambulatory Limitations: no limitations History of Present Illness HPI Narrative: Savanah is a 49-year-old female patient presenting to the clinic today with complaints of runny nose, cough, and sore throat for 4 days. She denies any fevers, chills, body aches. Has had exposure to strep. MD elicited complaint: sore throat and nasal congestion Related Data Home Medications ?Medication ?Instructions ?Recorded ?Confirmed ?Last Taken ?Type amitriptyline 25 mg tablet 25 mg PO HS 04/03/19 06/26/24 06/18/24 History topiramate 50 mg tablet (Topamax) 50 mg PO BID 12/13/20 06/26/24 06/18/24 History magnesium aspart,citrate,oxide 250 mg PO BID 04/19/24 06/26/24 06/18/24 History Allergies Allergy/AdvReac Type Severity Reaction Status Date / Time Iodinated Contrast Media Allergy Severe hives Verified 05/21/25 10:23 Review of Systems Review of Systems: Pertinent positives per HPI. Patient denies any fever, chills, rash, headache, visual changes, dizziness, cough, shortness of breath, chest pain, palpitations, nausea, vomiting, diarrhea, constipation, abdominal pain, or any urinary issues. PMFSH Past Medical History Medical History Obesity Hx of gastric ulcer Hx of adenomatous colonic polyps Stress bladder incontinence, female Cough Hyperlipidemia Fatigue GERD (gastroesophageal reflux disease) Dyspepsia Adenomatous colon polyp (~04/2019) Erosive gastritis Migraine Chronic left-sided low back pain without sciatica Depression with anxiety Family history of colon cancer LUQ pain Surgical History Surgical History History of hysterectomy Hx of arthroscopic knee surgery (~05/2016) Family History Family History Father Cerebrovascular accident Hypertension Carcinoma of colon Mother Diabetes mellitus Family history of osteoarthritis Carcinoma of colon Other Family history of arthritis Family history of malignant neoplasm Family history of malignant neoplasm of ovary Social History Social History Smoking packs per day: 1 Smoking cigarettes per day: 20.0 Years smoked: 20 Smoking pack-years: 20.00 Smoking status: Former smoker Tobacco type: cigarettes Second hand tobacco smoke exposure: No Smoking end date: 05/24/15 Additional smoking assessment comments: patient states she smoked on and off for 15 years Alcohol intake: never Alcohol use details: a few drinks a month Substance use: never Substance use type: does not use Other substance usage details: pt states she uses very rarely Lack of Transportation: No Lack of Food: Never True Current Housing: I Have Housing Concerned About Future Housing: No Difficulty Paying Gas/Electric Bills: No Difficulty Paying for Meds: No Currently Unemployed: No Education: Associate Degree Difficulty w/ Childcare or Family Care: Decline to Answer Living arrangements: with family Spiritual care concerns: No Comments At the time of my signature, I reviewed and agree with the nursing past medical, surgical, social, and family history. There is no relevant family history pertinent to the patient complaint. Exam Narrative: General: Well-developed, well nourished, in no apparent distress Head: Normocephalic, atraumatic Eyes: Pupils equally round and reactive to light bilaterally, EOM intact, sclera and conjunctive clear, no discharge, lids normal Ears: TMs intact and clear, ear canals clear, no drainage, grossly hearing normal. Nose: Nares patent, clear discharge, no inflammation, no sinus tenderness. Mouth: Oral pharynx red without lesions or masses, good dentition, MMM. Postnasal drip Neck: Supple, trachea midline, mild enlargement of anterior cervical nodes, no thyroid masses or goiter palpable. Cardio: Regular rate and rhythm, s1 and s2 normal, no murmur appreciated. Resp: Clear to auscultation bilaterally, no rhonchi, rales, wheezing or rubs Course Course Level of Care: Express Care Visit Vital Signs Vital signs: Vital Signs Temperature 36.8 C 05/21/25 10:14 Pulse Rate 61 05/21/25 10:14 Respiratory Rate 20 05/21/25 10:14 Blood Pressure 132/82 05/21/25 10:14 Pulse Oximetry 100 05/21/25 10:14 Oxygen Delivery Room Air 05/21/25 10:14 Temperature 36.8 C 05/21/25 10:14 Pulse Rate 61 12/29/25 10:14 Respiratory Rate 20 05/21/25 10:14 Blood Pressure 132/82 05/21/25 10:14 Pulse Oximetry 100 05/21/25 10:14 Oxygen Delivery Room Air 05/21/25 10:14 MDM MDM Narrative Medical decision making narrative: At the time of visit patient is resting comfortably on the exam table. Patient appears to be nontoxic. Complaints of runny nose, cough, and sore throat for 4 days. She denies any fevers, chills, body aches. Has had exposure to strep. On exam patient has TMs intact and clear, clear nasal drainage, no anterior turbinate inflammation, oral pharynx mildly red with postnasal drip, mild cervical lymphadenopathy, lung sounds are clear, heart rates regular rate and rhythm. Strep test was ordered Labs: Strep test was negative in the clinic today. We will send strep for culture Plan: I suspect patient has URI/pharyngitis. Work note was given. Supportive measures were discussed with the patient and they voiced understanding discharge instructions and agrees to treatment plan. Return precautions reviewed Differential Diagnosis Differential Diagnosis: Differential diagnostic considerations for upper respiratory infection include upper respiratory infection, croup, otitis media, sinusitis, viral infection, bronchitis, influenza, pharyngitis, strep, uvulitis. Lab Data Labs: Lab Results 05/21/25 Range/Units 10:37 POC Grp A Strep Screen Negative (Negative) Discharge Plan Discharge Clinical Impression: URI (upper respiratory infection) Qualifiers: URI type: unspecified URI Qualified Code(s): J06.9 - Acute upper respiratory infection, unspecified Pharyngitis Qualifiers: Pharyngitis/tonsillitis etiology: unspecified etiology Qualified Code(s): J02.9 - Acute pharyngitis, unspecified Patient Disposition: Home Condition: Stable Instructions: Antibiotic Form, Pharyngitis (ED), Cold Symptoms (ED) Additional Instructions: Strep test was negative in the clinic today. We will send strep for culture if this comes back positive we will contact you in place you on antibiotics at that time. Increase fluids and stay well hydrated May take Tylenol or motrin as directed on bottle for pain/fever May use Flonase 1 spray in each nare daily May take OTC antihistamines such as Zyrtec or Claritin daily as directed on bottle May apply Vicks vapor rub to chest to open sinuses Sinus rinses for congestion Cepacol spray, cough drops, throat lozenges, warm tea with honey/lemon, gargle salt water to soothe throat BRAT diet for diarrhea Clear liquids x 24 hours then advance as tolerated for nausea/vomiting Go to the ED if you develop a worsening in your condition- high fever not controlled by Tylenol or Motrin, dehydration, weakness, lethargy, shortness of breath, or chest pain. Follow up with your PCP in 3-5 days if symptoms persist. Patient Language: [place] Prescriptions: No Action amitriptyline 25 mg tablet 25 mg PO HS topiramate [Topamax] 50 mg tablet 50 mg PO BID magnesium aspart,citrate,oxide 400 mg magnesium capsule 250 mg PO BID pantoprazole 40 mg tablet,delayed release (DR/EC) 40 mg PO BID 90 Days Qty: 180 3RF ezetimibe 10 mg tablet 10 mg PO DAILY Qty: 90 1RF cholecalciferol (vitamin D3) 50 mcg (2,000 unit) tablet 50 mcg PO DAILY Qty: 90 1RF cyanocobalamin (vitamin B-12) 1,000 mcg tablet, sublingual 1,000 mcg sublingual DAILY Qty: 90 1RF Zepbound 2.5 mg/0.5 mL pen injector 2.5 mg subcut WEEKLY Qty: 2 0RF Rx Instructions: for 4 weeks oxybutynin chloride 10 mg tablet extended release 24hr 10 mg PO DAILY Qty: 90 1RF Follow-up/Referrals: Monisha Weaver MD [Primary Care Provider, Family Practice] Stand Alone Forms: Work/School Release IP Time of Disposition: 10:36 Quality NIHSS Nursing Documentation ED NIHSS nursing documentation: reviewed/agree
[2025-05-21 10:39] LABS: EDSTREPNEGPOS1 Negative (Negative)
== END 2025-05-21 10:39 | disposition home or self-care (01) ==
PROVIDERS: Emergency Provider Nurse Practitioner Family; PCP Family Medicine
DX: J06.9 Acute upper respiratory infection, unspecified (principal); J02.9 Acute pharyngitis, unspecified; E78.5 Hyperlipidemia, unspecified; K21.9 Gastro-esophageal reflux disease without esophagitis; G43.909 Migraine, unspecified, not intractable, without status migrainosus; F41.8 Other specified anxiety disorders; Z80.0 Family history of malignant neoplasm of digestive organs; Z87.891 Personal history of nicotine dependence
CPT/HCPCS: 87081; 87880; 99213; G0463